=== PATIENT | male | born 1980 | race Caucasian/White ===

== ENCOUNTER 2020-02-16 09:18 | Emergency (ER) | payer MEDICAID, OTHER ==
[~2020-02-16] VITALS: Ht 182.9 cm; Wt 81.8 kg
[2020-02-16 12:00] VITALS: BP 137/81
== END 2020-02-16 12:30 | disposition home or self-care (01) ==
LOC: EMS 09:19
DX: L02.512 Cutaneous abscess of left hand (principal)